=== PATIENT | male | born 2000 | race Caucasian/White ===

== ENCOUNTER 2023-03-11 01:38 | Emergency (ER) | payer BC, OTHER ==
[2023-03-11] MEDS ORDERED: Sodium Chloride 0.9% 10 ML Syringe FLUSH PRN (01:47)
[2023-03-11] MEDS ORDERED: Ketorolac 30 MG/ML SDV IVPUSH ONE (01:48)
[2023-03-11] MEDS ORDERED: cefTRIAXone 1 GM Vial IVPUSH ONE (01:49)
[2023-03-11 01:58] LABS: BASOPHILS PERCENT AUTO 0.3 % (0.0-1.0); EOSINOPHILS PERCENT AUTO 1.3 % (1.0-3.0); HEMATOCRIT 44.9 % (40.0-54.0); LYMPHOCYTES PERCENT AUTO 35.6 % (20.5-50.1); MEAN CORPUSCULAR HEMOGLOBIN 30.2 pg (27.0-34.0); MEAN CORPUSCULAR HGB CONC 35.6 g/dL (33.0-35.0); MEAN CORPUSCULAR VOLUME 84.7 fL (80-100); MONOCYTES PERCENT AUTO 7.2 % (2-8); NEUTROPHILS PERCENT AUTO 55.6 % (42.2-75.2); PLATELET COUNT,PLT 337 10^3/uL (150-450); WHITE BLOOD CELL COUNT,WBC 9.8 10^3/uL (5.0-10.0)
[2023-03-11 02:18] LABS: A/G RATIO 1.3; ALBUMIN 4.3 g/dL (3.4-5.0); ANION GAP 13.7 mEq/L (7-13); BILIRUBIN TOTAL 0.5 mg/dL (0.2-1.0); BUN/CREATININE RATIO 11.4 (No establ ref range); CALCIUM 8.9 mg/dL (8.5-10.1); CREATININE 0.88 mg/dL (0.70-1.30); EST CRCL DRUG DOSING (CG) 122.06 mL/min; POTASSIUM,K 3.7 mmol/L (3.5-5.1); PROTEIN TOTAL,TP 7.7 g/dL (6.4-8.2)
== END 2023-03-11 02:40 | disposition home or self-care (01) ==
LOC: DL.ED 01:38
DX: S02.5XXG Fracture of tooth (traumatic), subsequent encounter for fracture with delayed healing (principal); K02.9 Dental caries, unspecified
CPT/HCPCS: 36415; 70110; 80053; 85025; 96374; 96375; 99283-25; 99284; J0696; J1885; J3490

== ENCOUNTER 2023-03-11 15:21 | Emergency (ER) | payer BC, OTHER | END 2023-03-11 16:21 | disposition home or self-care (01) | LOC: DL.ED 15:21 | DX: K08.89 Other specified disorders of teeth and supporting structures (principal) | CPT/HCPCS: 64400; 99282 ==

== ENCOUNTER 2023-03-12 12:56 | Emergency (ER) | payer OTHER ==
[2023-03-12] MEDS ORDERED: Sodium Chloride 0.9% 10 ML Syringe FLUSH PRN (13:27)
[2023-03-12] MEDS ORDERED: Iopamidol 755 Mg/ML 100 ML Bottle IVPUSH ONE (13:28)
[2023-03-12 13:40] LABS: BASOPHILS PERCENT AUTO 0.2 % (0.0-1.0); EOSINOPHILS PERCENT AUTO 0.8 % (1.0-3.0); HEMATOCRIT 43.6 % (40.0-54.0); HEMOGLOBIN 15.3 g/dL (14.0-18.0); LYMPHOCYTES PERCENT AUTO 14.1 % (20.5-50.1); MEAN CORPUSCULAR HEMOGLOBIN 30.1 pg (27.0-34.0); MEAN CORPUSCULAR HGB CONC 35.1 g/dL (33.0-35.0); MEAN CORPUSCULAR VOLUME 85.8 fL (80-100); MONOCYTES PERCENT AUTO 7.7 % (2-8); NEUTROPHILS PERCENT AUTO 77.2 % (42.2-75.2); PLATELET COUNT,PLT 326 10^3/uL (150-450); RED BLOOD CELL COUNT 5.08 10^6/uL (4.6-6.2); WHITE BLOOD CELL COUNT,WBC 10.5 10^3/uL (5.0-10.0)
[2023-03-12 13:58] LABS: A/G RATIO 1.2; ALBUMIN 4.3 g/dL (3.4-5.0); ANION GAP 16.1 mEq/L (7-13); BILIRUBIN TOTAL 0.4 mg/dL (0.2-1.0); C-REACTIVE PROTEIN 2.05 ng/dL (<=0.30); CALCIUM 9.1 mg/dL (8.5-10.1); CREATININE 0.82 mg/dL (0.70-1.30); EST CRCL DRUG DOSING (CG) 130.99 mL/min; POTASSIUM,K 4.1 mmol/L (3.5-5.1); PROTEIN TOTAL,TP 7.9 g/dL (6.4-8.2)
[2023-03-12] MEDS ORDERED: Sulfamethoxazole/Trimethoprim 800-160 MG Tab PO ONE (15:06)
[2023-03-12] MEDS ORDERED: Take Home: Sulfamethoxazole/Trimethoprim 800-160 MG Tab, 6 Tab Pack PO ONE (15:09)
== END 2023-03-12 15:39 | disposition home or self-care (01) ==
LOC: DL.ED 12:56
DX: L03.221 Cellulitis of neck (principal)
CPT/HCPCS: 36415; 70491; 80053; 85025; 86140; 99284; A9270-GY; J3490; Q9967

== ENCOUNTER 2023-04-07 17:44 | Emergency (ER) | payer SELFPAY ==
[2023-04-07] MEDS: Clindamycin HCl 150 MG Cap PO ONE (18:23)
[2023-04-07] MEDS: Take Home: Lidocaine 2% Viscous Solution 15 ML UD, 2 Cup Pack PO ONE (18:30)
== END 2023-04-07 18:30 | disposition home or self-care (01) ==
LOC: DL.ED 17:44
DX: K04.7 Periapical abscess without sinus (principal)
CPT/HCPCS: 99283; A9270; 99282

== ENCOUNTER 2023-06-29 23:12 | Emergency (ER) | payer SELFPAY ==
[2023-06-29 23:24] LABS: BASOPHILS PERCENT AUTO 0.3 % (0.0-1.0); EOSINOPHILS PERCENT AUTO 1.1 % (1.0-3.0); HEMATOCRIT 44.6 % (40.0-54.0); HEMOGLOBIN 15.5 g/dL (14.0-18.0); LYMPHOCYTES PERCENT AUTO 29.2 % (20.5-50.1); MEAN CORPUSCULAR HGB CONC 34.8 g/dL (33.0-35.0); MEAN CORPUSCULAR VOLUME 86.3 fL (80-100); MONOCYTES PERCENT AUTO 6.4 % (2-8); PLATELET COUNT,PLT 334 10^3/uL (150-450); RED BLOOD CELL COUNT 5.17 10^6/uL (4.6-6.2); WHITE BLOOD CELL COUNT,WBC 11.6 10^3/uL (5.0-10.0)
[2023-06-29 23:39] LABS: INR 0.9 (0.9-1.2); PROTHROMBIN TIME 9.7 SEC (9.0-12.0)
[2023-06-29 23:42] LABS: A/G RATIO 1.1; ALANINE AMINOTRANSFERASE,ALT 38 U/L (16-63); ALBUMIN 4.2 g/dL (3.4-5.0); ALKALINE PHOSPHATASE 99 U/L (46-116); ANION GAP 12.8 mEq/L (7-13); ASPARTATE AMNIOTRANSFERASE,AST 18 U/L (15-37); BILIRUBIN TOTAL 0.4 mg/dL (0.2-1.0); BLOOD UREA NITROGEN,BUN 12 mg/dL (7-18); C-REACTIVE PROTEIN < 0.50 ng/dL (<=0.50); CARBON DIOXIDE,CO2 31 mmol/L (21-32); CHLORIDE,CL 102 mmol/L (98-107); CREATININE 0.92 mg/dL (0.70-1.30); EST CRCL DRUG DOSING (CG) 116.75 mL/min; ESTIMATED GFR 120 mL/min (>=60); ETHANOL BLOOD MEDICAL < 3 mg/dL (0); GLUCOSE RANDOM 92 mg/dL (70-99); LIPASE 61 U/L (16-77); MAGNESIUM 1.8 mg/dL (1.8-2.4); POTASSIUM,K 3.8 mmol/L (3.5-5.1); PROTEIN TOTAL,TP 7.9 g/dL (6.4-8.2); SODIUM,NA 142 mmol/L (136-145)
[2023-06-29 23:43] LABS: LACTIC ACID 0.5 mmol/L (0.4-2.0)
[2023-06-29 23:50] LABS: D-DIMER QUANTITATIVE < 100 ng/mL (0-400)
[2023-06-29 23:53] LABS: B-TYPE NATRIURETIC PEPTIDE,BNP 6 pg/ml (0-100)
[2023-06-30 00:02] LABS: CORONAVIRUS COVID-19 NAA NEGATIVE (NEGATIVE); INFLUENZA A NAA NEGATIVE (NEGATIVE); INFLUENZA B NAA NEGATIVE (NEGATIVE); RESPIRATORY SYNCYTIAL VIR NAA NEGATIVE (NEGATIVE)
[2023-06-30 00:34] LABS: AMPHETAMINES,URINE NEGATIVE (NEGATIVE); BARBITURATES,URINE NEGATIVE (NEGATIVE); BENZODIAZEPINE,URINE NEGATIVE (NEGATIVE); MDMA (ECSTASY), URINE NEGATIVE (NEGATIVE); METHADONE,URINE NEGATIVE (NEGATIVE); METHAMPHETAMINES,URINE NEGATIVE (NEGATIVE); OPIATES,URINE NEGATIVE (NEGATIVE); OXYCODONE,URINE NEGATIVE (NEGATIVE); PHENCYCLIDINE,URINE NEGATIVE (NEGATIVE); TCA,URINE NEGATIVE (NEGATIVE)
[2023-06-30 00:35] LABS: APPEARANCE,URINE CLEAR (CLEAR); BILIRUBIN,URINE NEGATIVE (NEGATIVE); COLOR,URINE YELLOW (YELLOW); GLUCOSE,URINE NEGATIVE (NEGATIVE); KETONES,URINE NEGATIVE (NEGATIVE); LEUKOCYTE ESTERASE,URINE NEGATIVE (NEGATIVE); NITRITE,URINE NEGATIVE (NEGATIVE); OCCULT BLOOD,URINE NEGATIVE (NEGATIVE); PROTEIN,URINE NEGATIVE (NEGATIVE); UROBILINOGEN,URINE 0.2 mg/dL (0.2-1.0)
[2023-06-30] MEDS ORDERED: predniSONE 20 MG Tab PO ONE (00:42)
== END 2023-06-30 00:59 | disposition home or self-care (01) ==
LOC: DL.ED 23:12
DX: R07.81 Pleurodynia (principal); Z20.822 Contact with and (suspected) exposure to COVID-19; Z87.891 Personal history of nicotine dependence
CPT/HCPCS: 0241U; 36415; 71045; 80053; 80305-QW; 80307; 81003; 83605; 83690; 83735; 83880; 84484; 85025; 85379; 85610; 85730; 86140; 93005; 99285; J7512